=== PATIENT | male | born 1960 | race Caucasian/White ===

== ENCOUNTER 2018-12-12 11:24 | Inpatient (IN) | payer MEDICARE, MEDICAID ==
[~2018-12-12] VITALS: Ht 170.2 cm; Wt 84.5 kg
[2018-12-12] MEDS ORDERED: SODIUM CHLORIDE FLUSH 10ML SYR IVF ONE (11:30)
--- NOTE | 2018-12-12 11:30 | NUR ---
PT BIB [facility] FROM [facility] IN [place] FOR SOB, HYPOXIA WITH RA SAT OF 80%. PT HAS BEEN C/O INTERMITTENT CP OVER LAST TWO DAYS WITH NEW PRODUCTIVE COUGH YESTERDAY. 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 RT AT BEDSIDE TO CONTINUE BIPAP.
[2018-12-12] MEDS ORDERED: PLEASE ENTER HEIGHT AND WEIGHT MC SCH (11:40)
[2018-12-12 12:04] LABS: BASOPHILS # (AUTO) 0.04 x10^3/uL (0-0.1); BASOPHILS % (AUTO) 0 % (0-1); EOSINOPHILS # (AUTO) 0.03 x10^3/uL (0-0.4); EOSINOPHILS % (AUTO) 0 % (1-7); LYMPHOCYTES # (AUTO) 1.42 x10^3/uL (1-3.4); LYMPHOCYTES % (AUTO) 14 % (22-44); MD NO; MEAN CORPUSCULAR HEMOGLOBIN 29.6 pg (27.5-34.5); MEAN CORPUSCULAR HGB CONC 32.1 g/dL (33.2-36.2); MEAN CORPUSCULAR VOLUME 92.2 fL (81-97); MEAN PLATELET VOLUME 8.6 fL (7.4-10.4); MONOCYTES # (AUTO) 0.44 x10^3/uL (0.2-0.8); MONOCYTES % (AUTO) 5 % (2-9); NEUTROPHILS # (AUTO) 7.97 x10^3/uL (1.8-6.8); NEUTROPHILS % (AUTO) 81 % (42-75); PLATELET COUNT 295 x10^3/uL (130-400); RED BLOOD COUNT 3.77 x10^6/uL (4.38-5.82); RED CELL DISTRIBUTION WIDTH 15.9 % (9.4-14.8)
[2018-12-12 12:10] LABS: INTERNATIONAL NORMALIZED RATIO 1.35 (0.93-1.1)
[2018-12-12 12:14] LABS: ALANINE AMINOTRANSFERASE 74 U/L (12-78); ALBUMIN 3.5 g/dL (3.4-5.0); ANION GAP 10 mmol/L (5-15); CALCIUM 8.6 mg/dL (8.5-10.1); CHLORIDE 106 mmol/L (98-107)
[2018-12-12 12:18] LABS: ALKALINE PHOSPHATASE 68 U/L (45-117); BILIRUBIN,TOTAL 1.3 mg/dL (0.2-1.0); CREATININE 1.24 mg/dL (0.7-1.3); TOTAL PROTEIN 7.7 g/dL (6.4-8.2)
[2018-12-12 12:23] LABS: TROPONIN I 0.129 ng/mL (0.000-0.045)
--- NOTE | 2018-12-12 12:28 | NUR ---
PT ATTEMPTED TO VOID BUT NOT ABLE TO . BLADDER SCANNER SHOWED GREATER THAN [address] MCKOY AWARE.
[2018-12-12] MEDS ORDERED: SODIUM CHLORIDE FLUSH 10ML SYR IVF PRN (12:30)
--- NOTE | 2018-12-12 12:33 | NUR ---
RT AT BEDSIDE AND BIPAP O2 DROPPED TO 40%.
[2018-12-12] MEDS ORDERED: ASPI325T17 PO (12:45)
[2018-12-12] MEDS ORDERED: ALPR2TAB5 PO (12:45)
[2018-12-12] MEDS ORDERED: VITAMIN E PO (12:45)
[2018-12-12] MEDS ORDERED: LEVO25TA4 PO (12:45)
[2018-12-12] MEDS ORDERED: FURO40TA6 PO (12:45)
[2018-12-12] MEDS ORDERED: MELA10TA PO (12:45)
[2018-12-12] MEDS ORDERED: CALCIUM (12:45)
[2018-12-12] MEDS ORDERED: vitamin A PO (12:45)
[2018-12-12] MEDS ORDERED: CARV3.1212 PO (12:45)
[2018-12-12] MEDS ORDERED: SERT50TA28 PO (12:45)
[2018-12-12] MEDS ORDERED: TRAZ-137 PO (12:45)
[2018-12-12] MEDS ORDERED: OMEP-110 PO (12:45)
[2018-12-12] MEDS ORDERED: ALBU18HF INH (12:45)
[2018-12-12] MEDS ORDERED: TAMS-11 PO (12:45)
[2018-12-12] MEDS ORDERED: SIMV40TA3 PO (12:45)
[2018-12-12] MEDS ORDERED: IBUP-1223 PO (12:45)
[2018-12-12] MEDS ORDERED: POTA10TA5 PO (12:45)
[2018-12-12] MEDS ORDERED: FLUT1AER INH (12:45)
[2018-12-12] MEDS ORDERED: LISI-170 PO (12:45)
[2018-12-12] MEDS ORDERED: ALBU0.63 NEB (12:45)
[2018-12-12] MEDS ORDERED: FENTANYL PF 100 MCG/2ML ONE (12:57)
[2018-12-12] MEDS ORDERED: FENTANYL PF 100 MCG/2ML IV ONE (13:00)
--- NOTE | 2018-12-12 13:01 | NUR ---
3 P'S ADDRESSED. PT MEDICATED FOR CHEST PAIN PER DR. MCKOY. WAITING ON CCU BED. VSS.
--- NOTE | 2018-12-12 13:27 | NUR ---
ATTEMPTED TO CALL REPORT BUT MARTINA, NURSE ACCEPTING PT, ON BREAK. WILL CALL SHORTLY PER ANGI.
[2018-12-12 14:29] VITALS: BP 119/82
[2018-12-12 14:57] VITALS: BP 119/81
[2018-12-12] MEDS ORDERED: NITROGLYCERIN/D5W PMX 250 ML IV PRN (15:00)
[2018-12-12] MEDS ORDERED: NITROGLYCERIN 0.4 MG/SPRAY SL PRN (15:30)
[2018-12-12] MEDS ORDERED: POLYETHYLENE GLYCOL 17 GM PACKET PO PRN (15:30)
[2018-12-12] MEDS ORDERED: ONDANSETRON 2MG/ML, 2ML IVPush PRN (15:30)
[2018-12-12] MEDS ORDERED: NITROGLYCERIN 0.4 MG BOTTLE (25 TABS) SL PRN (15:30)
[2018-12-12] MEDS ORDERED: BISACODYL 10 MG SUPP PR PRN (15:30)
[2018-12-12] MEDS ORDERED: ACETAMINOPHEN 325 MG TABLET PO PRN (15:30)
[2018-12-12] MEDS: ALBUTEROL SULFATE 2.5 MG/3 ML NPPB SCH ×3 (16:00→21:48)
[2018-12-12] MEDS: methylPREDNISolone SOD SUCC 40 MG/ML IVPush SCH ×2 (16:03→21:03)
[2018-12-12] MEDS: ENOXAPARIN 40 MG/0.4 ML SQ SCH (16:03)
[2018-12-12] MEDS: FUROSEMIDE 40 MG/4 ML IV SCH (16:03)
[2018-12-12] MEDS: POTASSIUM CHLORIDE 10 MEQ TABLET.ER PO SCH (16:04)
[2018-12-12] MEDS: ALPRazolam 1MG TAB PO PRN (16:04)
[2018-12-12] MEDS ORDERED: CEFTRIAXONE PMX 1GM/50ML 50 ML IV SCH (16:30)
[2018-12-12] MEDS: DOXYCYCLINE 100 MG in DEXTROSE 5% 250 ML IV SCH (18:10)
[2018-12-12 18:58] LABS: TROPONIN I 0.133 ng/mL (0.000-0.045)
[2018-12-12] MEDS: CARVEDILOL 3.125 MG TABLET PO SCH (21:02)
[2018-12-12] MEDS: TRAZODONE 100MG TABLET PO SCH (21:03)
[2018-12-12] MEDS: SERTRALINE 50MG TABLET PO SCH (21:03)
[2018-12-12] MEDS: SIMVASTATIN 40 MG TABLET PO SCH (21:03)
[2018-12-12] MEDS: BUDESONIDE 0.5 MG/2 ML INHA NPPB SCH (21:48)
[2018-12-13 01:11] LABS: TROPONIN I 0.131 ng/mL (0.000-0.045)
[2018-12-13] MEDS: ALBUTEROL SULFATE 2.5 MG/3 ML NPPB SCH ×4 (03:00→21:00)
[2018-12-13] MEDS: methylPREDNISolone SOD SUCC 40 MG/ML IVPush SCH ×4 (03:22→23:14)
[2018-12-13 04:00] VITALS: BP 130/75
[2018-12-13] MEDS: DOXYCYCLINE 100 MG in DEXTROSE 5% 250 ML IV SCH (04:39)
[2018-12-13 04:51] LABS: BASOPHILS # (AUTO) 0.01 x10^3/uL (0-0.1); BASOPHILS % (AUTO) 0 % (0-1); EOSINOPHILS % (AUTO) 0 % (1-7); LYMPHOCYTES # (AUTO) 0.97 x10^3/uL (1-3.4); LYMPHOCYTES % (AUTO) 20 % (22-44); MD NO; MEAN CORPUSCULAR HEMOGLOBIN 30.3 pg (27.5-34.5); MEAN CORPUSCULAR VOLUME 92.1 fL (81-97); MEAN PLATELET VOLUME 8.6 fL (7.4-10.4); MONOCYTES # (AUTO) 0.09 x10^3/uL (0.2-0.8); MONOCYTES % (AUTO) 2 % (2-9); NEUTROPHILS # (AUTO) 3.78 x10^3/uL (1.8-6.8); NEUTROPHILS % (AUTO) 78 % (42-75); PLATELET COUNT 224 x10^3/uL (130-400); RED BLOOD COUNT 3.25 x10^6/uL (4.38-5.82); RED CELL DISTRIBUTION WIDTH 15.9 % (9.4-14.8)
[2018-12-13 04:55] LABS: ALANINE AMINOTRANSFERASE 118 U/L (12-78); ALBUMIN 3.2 g/dL (3.4-5.0); ANION GAP 4 mmol/L (5-15); CALCIUM 8.1 mg/dL (8.5-10.1); CHLORIDE 106 mmol/L (98-107)
[2018-12-13 04:57] LABS: ALKALINE PHOSPHATASE 58 U/L (45-117); BILIRUBIN,TOTAL 1.1 mg/dL (0.2-1.0); TOTAL PROTEIN 6.7 g/dL (6.4-8.2)
[2018-12-13] MEDS: LEVOTHYROXINE 25 MCG TABLET PO SCH (05:59)
[2018-12-13] MEDS: BUDESONIDE 0.5 MG/2 ML INHA NPPB SCH ×2 (07:28→21:00)
[2018-12-13] MEDS ORDERED: FLUTICASONE/VILANTEROL 100-25MCG/INH INH SCH (09:00)
[2018-12-13] MEDS: FUROSEMIDE 40 MG/4 ML IV SCH ×2 (09:11→17:19)
[2018-12-13] MEDS: KETOROLAC 30 MG/1 ML IV PRN (09:11)
[2018-12-13] MEDS: OMEPRAZOLE 20 MG CAPSULE.DR PO SCH (09:12)
[2018-12-13] MEDS: SENNA/DOCUSATE TABLET PO SCH (09:12)
[2018-12-13] MEDS: ASPIRIN 325 MG TABLET PO SCH (09:13)
[2018-12-13] MEDS: LISINOPRIL 20 MG TABLET PO SCH (09:13)
[2018-12-13] MEDS: TAMSULOSIN 0.4 MG CAP.ER.24H PO SCH (09:13)
[2018-12-13] MEDS: POTASSIUM CHLORIDE 10 MEQ TABLET.ER PO SCH ×2 (09:13→17:19)
[2018-12-13] MEDS: CARVEDILOL 3.125 MG TABLET PO SCH ×2 (09:13→20:48)
[2018-12-13] MEDS: ENOXAPARIN 40 MG/0.4 ML SQ SCH (17:19)
[2018-12-13 17:50] VITALS: BP 124/80
[2018-12-13 19:54] VITALS: BP 131/84
[2018-12-13] MEDS: SIMVASTATIN 40 MG TABLET PO SCH (20:47)
[2018-12-13] MEDS: SERTRALINE 50MG TABLET PO SCH (20:48)
[2018-12-13] MEDS: TRAZODONE 100MG TABLET PO SCH (20:48)
[2018-12-13] MEDS: ALPRazolam 1MG TAB PO PRN (20:52)
[2018-12-14] MEDS: ALBUTEROL SULFATE 2.5 MG/3 ML NPPB SCH ×4 (03:00→21:31)
[2018-12-14 03:21] VITALS: BP 114/76
[2018-12-14] MEDS: LEVOTHYROXINE 25 MCG TABLET PO SCH (05:38)
[2018-12-14] MEDS: methylPREDNISolone SOD SUCC 40 MG/ML IVPush SCH ×4 (05:38→23:46)
[2018-12-14 05:44] LABS: ANION GAP 7 mmol/L (5-15); CALCIUM 8.6 mg/dL (8.5-10.1); CHLORIDE 103 mmol/L (98-107); CREATININE 1.14 mg/dL (0.7-1.3)
[2018-12-14 07:56] VITALS: BP 132/78
[2018-12-14] MEDS: OMEPRAZOLE 20 MG CAPSULE.DR PO SCH (08:00)
[2018-12-14] MEDS: SENNA/DOCUSATE TABLET PO SCH (08:01)
[2018-12-14] MEDS: TAMSULOSIN 0.4 MG CAP.ER.24H PO SCH (08:02)
[2018-12-14] MEDS: ASPIRIN 325 MG TABLET PO SCH (08:03)
[2018-12-14] MEDS: LISINOPRIL 20 MG TABLET PO SCH (08:03)
[2018-12-14] MEDS: POTASSIUM CHLORIDE 20 MEQ TAB.ER.PRT PO SCH ×2 (08:04→17:09)
[2018-12-14] MEDS: CARVEDILOL 3.125 MG TABLET PO SCH ×2 (08:04→20:44)
[2018-12-14] MEDS: FUROSEMIDE 40 MG/4 ML IV SCH ×2 (08:05→17:08)
[2018-12-14] MEDS: BUDESONIDE 0.5 MG/2 ML INHA NPPB SCH ×2 (09:00→21:31)
[2018-12-14] MEDS: ALPRazolam 1MG TAB PO PRN ×2 (11:31→20:44)
[2018-12-14 13:10] VITALS: BP 127/82
[2018-12-14] MEDS: ENOXAPARIN 40 MG/0.4 ML SQ SCH (17:09)
[2018-12-14 19:39] VITALS: BP 116/76
[2018-12-14] MEDS: TRAZODONE 100MG TABLET PO SCH (20:43)
[2018-12-14] MEDS: SERTRALINE 50MG TABLET PO SCH (20:43)
[2018-12-14] MEDS: SIMVASTATIN 40 MG TABLET PO SCH (20:43)
[2018-12-15] VITALS (9 sets, daily range): BP systolic 113–127; BP diastolic 80–99
[2018-12-15] MEDS ORDERED: METOPROLOL 1 MG/ML, 5ML ONE (04:41)
[2018-12-15] MEDS ORDERED: METOPROLOL 1 MG/ML, 5ML IVPush ONE (05:00)
[2018-12-15] MEDS: methylPREDNISolone SOD SUCC 40 MG/ML IVPush SCH ×3 (05:23→21:32)
[2018-12-15] MEDS: LEVOTHYROXINE 25 MCG TABLET PO SCH (05:25)
[2018-12-15] MEDS ORDERED: ASPIRIN 325 MG TABLET PO ONE (05:30)
[2018-12-15] MEDS ORDERED: ENOXAPARIN 80 MG/0.8 ML SQ SCH (05:30)
[2018-12-15 06:03] LABS: TROPONIN I 0.073 ng/mL (0.000-0.045)
[2018-12-15] MEDS: MEPERIDINE 50 MG TABLET PO PRN ×2 (06:54→18:24)
[2018-12-15] MEDS: ALBUTEROL SULFATE 2.5 MG/3 ML NPPB SCH ×4 (07:00→20:00)
[2018-12-15] MEDS: BUDESONIDE 0.5 MG/2 ML INHA NPPB SCH ×2 (07:19→21:00)
[2018-12-15] MEDS: FUROSEMIDE 40 MG/4 ML IV SCH ×2 (08:24→17:07)
[2018-12-15] MEDS: ASPIRIN 325 MG TABLET PO SCH (08:26)
[2018-12-15] MEDS: OMEPRAZOLE 20 MG CAPSULE.DR PO SCH (08:27)
[2018-12-15] MEDS: TAMSULOSIN 0.4 MG CAP.ER.24H PO SCH (08:27)
[2018-12-15] MEDS: LISINOPRIL 20 MG TABLET PO SCH (08:27)
[2018-12-15] MEDS ORDERED: HEPARIN 5,000 UNITS/ML, 1ML IV ONE (08:30)
[2018-12-15] MEDS ORDERED: AMIODARONE 150 MG in DEXTROSE 5% 100 ML IV ONE (08:30)
[2018-12-15] MEDS ORDERED: FUROSEMIDE 40 MG/4 ML IV ONE (08:30)
[2018-12-15] MEDS ORDERED: FILTER 0.22 MICRON FOR AMIODARONE IV PRN (08:30)
[2018-12-15] MEDS: KETOROLAC 30 MG/1 ML IV PRN ×2 (08:42→15:40)
[2018-12-15] MEDS: AMIODARONE 900 MG in DEXTROSE 5% 482 ML IV PRN (08:48)
[2018-12-15 08:56] LABS: MEAN CORPUSCULAR HEMOGLOBIN 29.1 pg (27.5-34.5); MEAN CORPUSCULAR HGB CONC 31.7 g/dL (33.2-36.2); MEAN CORPUSCULAR VOLUME 91.7 fL (81-97); MEAN PLATELET VOLUME 8.8 fL (7.4-10.4); PLATELET COUNT 267 x10^3/uL (130-400); RED BLOOD COUNT 3.75 x10^6/uL (4.38-5.82); RED CELL DISTRIBUTION WIDTH 16.3 % (9.4-14.8)
[2018-12-15] MEDS: CARVEDILOL 3.125 MG TABLET PO SCH ×2 (09:00→21:32)
[2018-12-15] MEDS: SENNA/DOCUSATE TABLET PO SCH (09:04)
[2018-12-15 09:05] LABS: ANION GAP 8 mmol/L (5-15); CALCIUM 8.7 mg/dL (8.5-10.1); CHLORIDE 105 mmol/L (98-107); CREATININE 1.17 mg/dL (0.7-1.3)
[2018-12-15 09:09] LABS: BASOPHILS # (AUTO) 0.01 x10^3/uL (0-0.1); BASOPHILS % (AUTO) 0 % (0-1); EOSINOPHILS % (AUTO) 0 % (1-7); LYMPHOCYTES # (AUTO) 0.95 x10^3/uL (1-3.4); LYMPHOCYTES % (AUTO) 7 % (22-44); MD SCAN; MONOCYTES # (AUTO) 0.44 x10^3/uL (0.2-0.8); MONOCYTES % (AUTO) 3 % (2-9); NEUTROPHILS # (AUTO) 13.05 x10^3/uL (1.8-6.8); NEUTROPHILS % (AUTO) 90 % (42-75); TROPONIN I 0.074 ng/mL (0.000-0.045)
[2018-12-15] MEDS: HEPARIN 25,000 UNITS/500ML PMX 500 ML IV PRN (09:35)
[2018-12-15 14:01] LABS: TROPONIN I 0.075 ng/mL (0.000-0.045)
[2018-12-15] MEDS ORDERED: OMNIPAQUE 350 MG/ML, 100ML BOTTLE ONE (15:22)
[2018-12-15] MEDS: SIMVASTATIN 40 MG TABLET PO SCH (21:31)
[2018-12-15] MEDS: TRAZODONE 100MG TABLET PO SCH (21:31)
[2018-12-15] MEDS: SERTRALINE 50MG TABLET PO SCH (21:31)
[2018-12-15] MEDS: ALPRazolam 1MG TAB PO PRN (21:31)
[2018-12-15] MEDS: HEPARIN 5,000 UNITS/ML, 1ML IV PRN (23:06)
[2018-12-16] MEDS: MEPERIDINE 50 MG TABLET PO PRN (01:02)
[2018-12-16 01:46] VITALS: BP 118/81
[2018-12-16 05:21] LABS: BASOPHILS # (AUTO) 0.08 x10^3/uL (0-0.1); BASOPHILS % (AUTO) 1 % (0-1); EOSINOPHILS % (AUTO) 0 % (1-7); LYMPHOCYTES # (AUTO) 1.47 x10^3/uL (1-3.4); LYMPHOCYTES % (AUTO) 10 % (22-44); MD NO; MEAN CORPUSCULAR HEMOGLOBIN 29.9 pg (27.5-34.5); MEAN CORPUSCULAR VOLUME 90.9 fL (81-97); MEAN PLATELET VOLUME 8.9 fL (7.4-10.4); MONOCYTES # (AUTO) 0.57 x10^3/uL (0.2-0.8); MONOCYTES % (AUTO) 4 % (2-9); NEUTROPHILS # (AUTO) 12.29 x10^3/uL (1.8-6.8); NEUTROPHILS % (AUTO) 85 % (42-75); PLATELET COUNT 298 x10^3/uL (130-400); RED BLOOD COUNT 3.85 x10^6/uL (4.38-5.82)
[2018-12-16 05:33] LABS: CALCIUM 8.6 mg/dL (8.5-10.1); CHLORIDE 102 mmol/L (98-107)
[2018-12-16 05:36] LABS: ANION GAP 9 mmol/L (5-15); CREATININE 1.54 mg/dL (0.7-1.3)
[2018-12-16] MEDS: KETOROLAC 30 MG/1 ML IV PRN (05:37)
[2018-12-16] MEDS: LEVOTHYROXINE 25 MCG TABLET PO SCH (05:37)
[2018-12-16] MEDS: ALBUTEROL SULFATE 2.5 MG/3 ML NPPB SCH ×4 (07:00→19:50)
[2018-12-16 07:02] VITALS: BP 110/77
[2018-12-16] MEDS: BUDESONIDE 0.5 MG/2 ML INHA NPPB SCH ×2 (08:09→19:50)
[2018-12-16] MEDS: methylPREDNISolone SOD SUCC 40 MG/ML IVPush SCH ×2 (08:43→21:03)
[2018-12-16] MEDS: SENNA/DOCUSATE TABLET PO SCH (08:44)
[2018-12-16] MEDS: ASPIRIN 325 MG TABLET PO SCH (08:44)
[2018-12-16] MEDS: OMEPRAZOLE 20 MG CAPSULE.DR PO SCH (08:44)
[2018-12-16] MEDS: CARVEDILOL 3.125 MG TABLET PO SCH (08:44)
[2018-12-16] MEDS: TAMSULOSIN 0.4 MG CAP.ER.24H PO SCH (08:44)
[2018-12-16] MEDS: LISINOPRIL 20 MG TABLET PO SCH (08:44)
[2018-12-16] MEDS ORDERED: ACETAMINOPHEN 325 MG TABLET PO PRN (09:30)
[2018-12-16] MEDS ORDERED: PROPOFOL 10 MG/ML, 20ML ONE (10:33)
[2018-12-16] MEDS: AMIODARONE 900 MG in DEXTROSE 5% 482 ML IV PRN ×2 (12:00→15:04)
[2018-12-16 12:34] VITALS: BP 115/80
[2018-12-16] MEDS: ALPRazolam 1MG TAB PO PRN (13:01)
[2018-12-16] MEDS: HEPARIN 5,000 UNITS/ML, 1ML IV PRN ×2 (13:01→21:03)
[2018-12-16] MEDS: HEPARIN 25,000 UNITS/500ML PMX 500 ML IV PRN (15:05)
[2018-12-16 15:34] LABS: % IRON SATURATION 6 % (20-55); IRON LEVEL 30 mcg/dL (65-175); TOTAL IRON BINDING CAPACITY 484 mcg/dL (250-450)
[2018-12-16] MEDS: LACTOBACILLUS CHEW TABLET PO SCH ×2 (17:53→21:03)
[2018-12-16 19:12] VITALS: BP 108/68
[2018-12-16] MEDS: SERTRALINE 50MG TABLET PO SCH (21:04)
[2018-12-16] MEDS: CARVEDILOL 6.25 MG TABLET PO SCH (21:04)
[2018-12-16] MEDS: TRAZODONE 100MG TABLET PO SCH (21:04)
[2018-12-16] MEDS: SIMVASTATIN 40 MG TABLET PO SCH (21:04)
[2018-12-17] MEDS: ALPRazolam 1MG TAB PO PRN ×2 (01:23→11:37)
[2018-12-17 01:30] VITALS: BP 108/80
[2018-12-17] MEDS: HEPARIN 5,000 UNITS/ML, 1ML IV PRN (05:06)
[2018-12-17] MEDS: LEVOTHYROXINE 25 MCG TABLET PO SCH (05:06)
[2018-12-17 07:01] VITALS: BP 109/78
[2018-12-17] MEDS: ALBUTEROL SULFATE 2.5 MG/3 ML NPPB SCH ×5 (07:35→20:18)
[2018-12-17] MEDS: BUDESONIDE 0.5 MG/2 ML INHA NPPB SCH ×3 (07:35→20:18)
[2018-12-17 08:31] LABS: ANION GAP 5 mmol/L (5-15); CALCIUM 8.3 mg/dL (8.5-10.1); CHLORIDE 101 mmol/L (98-107); CREATININE 1.34 mg/dL (0.7-1.3)
[2018-12-17 08:32] LABS: MEAN CORPUSCULAR HEMOGLOBIN 29.3 pg (27.5-34.5); MEAN CORPUSCULAR VOLUME 91.5 fL (81-97); MEAN PLATELET VOLUME 8.8 fL (7.4-10.4); PLATELET COUNT 265 x10^3/uL (130-400); RED BLOOD COUNT 3.84 x10^6/uL (4.38-5.82); RED CELL DISTRIBUTION WIDTH 16.8 % (9.4-14.8)
[2018-12-17 08:54] LABS: BASOPHILS # (AUTO) 0.01 x10^3/uL (0-0.1); BASOPHILS % (AUTO) 0 % (0-1); EOSINOPHILS % (AUTO) 0 % (1-7); LYMPHOCYTES # (AUTO) 1.14 x10^3/uL (1-3.4); LYMPHOCYTES % (AUTO) 13 % (22-44); MD SCAN; MONOCYTES % (AUTO) 8 % (2-9); NEUTROPHILS # (AUTO) 6.74 x10^3/uL (1.8-6.8); NEUTROPHILS % (AUTO) 79 % (42-75)
[2018-12-17] MEDS: LACTOBACILLUS CHEW TABLET PO SCH ×3 (09:12→20:40)
[2018-12-17] MEDS: SENNA/DOCUSATE TABLET PO SCH (09:12)
[2018-12-17] MEDS: ASPIRIN 325 MG TABLET PO SCH (09:13)
[2018-12-17] MEDS: LISINOPRIL 20 MG TABLET PO SCH (09:13)
[2018-12-17] MEDS: CARVEDILOL 6.25 MG TABLET PO SCH ×2 (09:13→20:40)
[2018-12-17] MEDS: TAMSULOSIN 0.4 MG CAP.ER.24H PO SCH (09:13)
[2018-12-17] MEDS: OMEPRAZOLE 20 MG CAPSULE.DR PO SCH (09:13)
[2018-12-17] MEDS: FERROUS SULFATE 325 MG TABLET PO SCH (11:37)
[2018-12-17] MEDS: HEPARIN 25,000 UNITS/500ML PMX 500 ML IV PRN (14:10)
[2018-12-17 14:59] VITALS: BP 112/74
[2018-12-17 19:52] VITALS: BP 101/69
[2018-12-17] MEDS: AMIODARONE 200 MG TABLET PO SCH (20:39)
[2018-12-17] MEDS: SIMVASTATIN 40 MG TABLET PO SCH (20:40)
[2018-12-17] MEDS: TRAZODONE 100MG TABLET PO SCH (20:40)
[2018-12-17] MEDS: SERTRALINE 50MG TABLET PO SCH (20:40)
[2018-12-17] MEDS: KETOROLAC 30 MG/1 ML IV PRN (20:52)
[2018-12-18] MEDS: ALPRazolam 1MG TAB PO PRN ×2 (00:33→23:06)
[2018-12-18 01:23] VITALS: BP 113/77
[2018-12-18] MEDS: LEVOTHYROXINE 25 MCG TABLET PO SCH (05:24)
[2018-12-18] MEDS: KETOROLAC 30 MG/1 ML IV PRN (05:24)
[2018-12-18 07:20] VITALS: BP 105/75
[2018-12-18] MEDS: ALBUTEROL SULFATE 2.5 MG/3 ML NPPB SCH ×4 (07:42→18:57)
[2018-12-18] MEDS: BUDESONIDE 0.5 MG/2 ML INHA NPPB SCH ×2 (07:42→18:57)
[2018-12-18] MEDS: AMIODARONE 200 MG TABLET PO SCH ×2 (08:41→20:13)
[2018-12-18] MEDS: ASPIRIN 325 MG TABLET PO SCH (08:41)
[2018-12-18] MEDS: SENNA/DOCUSATE TABLET PO SCH (08:41)
[2018-12-18] MEDS: CARVEDILOL 6.25 MG TABLET PO SCH ×2 (08:41→20:14)
[2018-12-18] MEDS: TAMSULOSIN 0.4 MG CAP.ER.24H PO SCH (08:41)
[2018-12-18] MEDS: OMEPRAZOLE 20 MG CAPSULE.DR PO SCH (08:41)
[2018-12-18] MEDS: LISINOPRIL 20 MG TABLET PO SCH (08:42)
[2018-12-18] MEDS: LACTOBACILLUS CHEW TABLET PO SCH ×3 (08:42→20:14)
[2018-12-18 08:46] VITALS: BP 104/73
[2018-12-18] MEDS: MEPERIDINE 50 MG TABLET PO PRN ×2 (09:31→23:06)
[2018-12-18] MEDS: APIXABAN 5 MG TABLET PO SCH ×2 (10:44→20:14)
[2018-12-18 13:50] VITALS: BP 111/74
[2018-12-18 19:12] VITALS: BP 98/64
[2018-12-18 20:13] VITALS: BP 110/71
[2018-12-18] MEDS: SERTRALINE 50MG TABLET PO SCH (20:14)
[2018-12-18] MEDS: SIMVASTATIN 40 MG TABLET PO SCH (20:14)
[2018-12-18] MEDS: TRAZODONE 100MG TABLET PO SCH (23:06)
[2018-12-19 00:55] VITALS: BP 108/68
[2018-12-19] MEDS: ALBUTEROL SULFATE 2.5 MG/3 ML NPPB SCH ×4 (02:47→14:40)
[2018-12-19] MEDS: LEVOTHYROXINE 25 MCG TABLET PO SCH (05:01)
[2018-12-19] MEDS: MEPERIDINE 50 MG TABLET PO PRN (05:50)
[2018-12-19] MEDS: BUDESONIDE 0.5 MG/2 ML INHA NPPB SCH (06:43)
[2018-12-19 07:22] VITALS: BP 100/55
[2018-12-19] MEDS: LACTOBACILLUS CHEW TABLET PO SCH ×2 (08:35→17:06)
[2018-12-19] MEDS: APIXABAN 5 MG TABLET PO SCH (08:35)
[2018-12-19] MEDS: CARVEDILOL 6.25 MG TABLET PO SCH (08:35)
[2018-12-19] MEDS: AMIODARONE 200 MG TABLET PO SCH (08:36)
[2018-12-19] MEDS: LISINOPRIL 20 MG TABLET PO SCH (08:36)
[2018-12-19] MEDS: SENNA/DOCUSATE TABLET PO SCH (08:36)
[2018-12-19] MEDS: OMEPRAZOLE 20 MG CAPSULE.DR PO SCH (08:36)
[2018-12-19] MEDS: TAMSULOSIN 0.4 MG CAP.ER.24H PO SCH (08:36)
[2018-12-19] MEDS ORDERED: ASPIRIN 81 MG TABLET EC PO SCH (09:00)
[2018-12-19] MEDS ORDERED: ASPI81TA45 PO (09:25)
[2018-12-19] MEDS ORDERED: CARV6.2512 PO (09:25)
[2018-12-19] MEDS ORDERED: ACID1TAB7 PO (09:25)
[2018-12-19] MEDS ORDERED: SPIR25TA5 PO (09:25)
[2018-12-19] MEDS ORDERED: NITR0.4T SL (09:25)
[2018-12-19] MEDS ORDERED: AMIO200T42 PO (09:25)
[2018-12-19] MEDS ORDERED: APIX5TAB PO (09:25)
[2018-12-19] MEDS: ALPRazolam 1MG TAB PO PRN (11:20)
[2018-12-19] MEDS: FERROUS SULFATE 325 MG TABLET PO SCH (12:39)
[2018-12-19 13:01] VITALS: BP 108/73
== END 2018-12-19 18:57 | disposition home health service (06) | DRG 291 ==
LOC: ED 12:50 → EDIP 13:00 → CCU 14:05 → 5SO 12-13 12:06
PROVIDERS: ADMIT Internal Medicine; ATTEND Internal Medicine
PROC: 5A09357 Assistance with Respiratory Ventilation, Less than 24 Consecutive Hours, Continuous Positive Airway Pressure (ICD-10-PCS; 2018-12-12)
PROC: 5A2204Z Restoration of Cardiac Rhythm, Single (ICD-10-PCS; principal; 2018-12-16 10:30)
DX: I11.0 Hypertensive heart disease with heart failure (principal); J96.01 Acute respiratory failure with hypoxia; D68.69 Other thrombophilia; J44.1 Chronic obstructive pulmonary disease with (acute) exacerbation; N17.9 Acute kidney failure, unspecified; I50.43 Acute on chronic combined systolic (congestive) and diastolic (congestive) heart failure; I25.5 Ischemic cardiomyopathy; B19.20 Unspecified viral hepatitis C without hepatic coma; D50.9 Iron deficiency anemia, unspecified; D63.8 Anemia in other chronic diseases classified elsewhere; E03.9 Hypothyroidism, unspecified; E11.9 Type 2 diabetes mellitus without complications; E66.9 Obesity, unspecified; E78.5 Hyperlipidemia, unspecified; F17.200 Nicotine dependence, unspecified, uncomplicated; F31.9 Bipolar disorder, unspecified; F41.9 Anxiety disorder, unspecified; G47.00 Insomnia, unspecified; G89.29 Other chronic pain; I25.10 Atherosclerotic heart disease of native coronary artery without angina pectoris; I25.2 Old myocardial infarction; I44.7 Left bundle-branch block, unspecified; I48.91 Unspecified atrial fibrillation; K21.9 Gastro-esophageal reflux disease without esophagitis; N40.0 Benign prostatic hyperplasia without lower urinary tract symptoms; Z79.891 Long term (current) use of opiate analgesic; Z82.49 Family history of ischemic heart disease and other diseases of the circulatory system; Z86.73 Personal history of transient ischemic attack (TIA), and cerebral infarction without residual deficits; Z95.0 Presence of cardiac pacemaker; Z95.810 Presence of automatic (implantable) cardiac defibrillator; Z99.81 Dependence on supplemental oxygen
CPT/HCPCS: 36415; 36600; 71045; 71275; 80048; 80053; 82803; 83540; 83550; 83605; 83735; 83880; 84100; 84145; 84443; 84484; 85025; 85520; 85610; 85730; 87040; 87081; 92960; 93005; 93306; 94640; 94660; 96374; 99285; G0378; J0696; J1644; J1650; J1885; J1940; J2405; J2704; J3010; J7060; J7613; J7626; Q9967; J0282; J2920

== ENCOUNTER 2019-03-12 09:10 | Outpatient (CLI) | payer MEDICARE, MEDICAID ==
[~2019-03-12 09:10] MED LIST: ACID1TAB7 PO; ALBU0.63 NEB; ALBU18HF INH; ALPR2TAB5 PO; AMIO200T42 PO; APIX5TAB PO; ASPI325T17 PO; ASPI81TA45 PO; CALCIUM; CARV3.1212 PO; CARV6.2512 PO; FLUT1AER INH; FURO40TA6 PO; IBUP-1223 PO; LEVO25TA4 PO; LISI-170 PO; MELA10TA PO; NITR0.4T41 SL; OMEP-110 PO; POTA10TA5 PO; REGADENOSON 0.4 MG/5 ML SYRINGE ONE; SERT50TA28 PO; SIMV40TA3 PO; SPIR25TA5 PO; TAMS-11 PO; TRAZ-137 PO; VITAMIN E PO; vitamin A PO
== END 2019-03-12 23:59 | disposition home or self-care (01) ==
LOC: CVU 09:10 → CFH 23:59
PROVIDERS: ATTEND Internal Medicine Cardiovascular Disease
DX: I08.8 Other rheumatic multiple valve diseases (principal); I25.5 Ischemic cardiomyopathy; I25.10 Atherosclerotic heart disease of native coronary artery without angina pectoris; E78.5 Hyperlipidemia, unspecified; E11.9 Type 2 diabetes mellitus without complications; I25.2 Old myocardial infarction
CPT/HCPCS: 78452; 93017; 93306; A9502; J2785